=== PATIENT | female | born 1960 | race Caucasian/White ===

== ENCOUNTER 2018-02-22 15:15 | Emergency (ER) | payer OTHER | END 2018-02-22 16:03 | disposition home or self-care (01) | LOC: NAV ERS 15:15 | DX: S93.602A Unspecified sprain of left foot, initial encounter (principal); M72.2 Plantar fascial fibromatosis; E03.9 Hypothyroidism, unspecified; E78.5 Hyperlipidemia, unspecified; F41.9 Anxiety disorder, unspecified; F32.9 Major depressive disorder, single episode, unspecified; Z79.899 Other long term (current) drug therapy; X50.9XXA Other and unspecified overexertion or strenuous movements or postures, initial encounter | CPT/HCPCS: 99283 ==